=== PATIENT | female | born 1980 | race Caucasian/White ===

== ENCOUNTER 2022-12-02 10:10 | Outpatient (CLI) | payer OTHER ==
--- NOTE | 2022-12-02 11:51 | Ultrasound Report ---
PROCEDURE: Transvaginal INDICATIONS: PELVIC PAIN LEFT TECHNIQUE: Real-time endovaginal scanning was performed of the pelvic organs, with image documentation. COMPARISON: None. FINDINGS: No pathologic free abdominal or pelvic fluid. Uterus: Uterus is normal in size at 7.5 x 4.6 x 5.3 cm. The endometrium measures 5 mm in combined t hickness. There is no intrauterine gestation seen. No endometrial mass or fluid. Ovaries: Right ovary is surgically absent. No right adnexal mass is seen. Heterogeneously hypoechoic structure is noted in left ovary and show internal vascularity. Other: Small amount of free fluid is seen in left adnexa extending to posterior cul-de-sac. IMPRESSION: 1. No evidence of intrauterine gestation. 2. Complex mass in left ovary with internal blood flow and adjacent free fluid concerning for ectopic gestation. Correlation with serial beta-hCG levels and follow-up ultrasound is recommended. 3. Prior right nephrectomy. No abnormality is seen in right adnexa. Reviewed by: Sergio Mayes MD on 12/02/2022 11:50 AM PDT Approved by: Sergio Mayes MD on 12/02/2022 11:50 AM PDT Station ID: [id number]
== END 2022-12-02 10:11 | disposition home or self-care (01) ==
LOC: DI 10:10
PROVIDERS: ATTEND Nurse Practitioner
DX: Z32.01 Encounter for pregnancy test, result positive (principal); N83.8 Other noninflammatory disorders of ovary, fallopian tube and broad ligament; Z90.5 Acquired absence of kidney
CPT/HCPCS: 36415; 84702

== ENCOUNTER 2022-12-02 16:22 | Day surgery (SDC) | payer OTHER ==
[~2022-12-02 16:22] MED LIST: LACTATED RINGERS 1,000 ML IV ONE
--- NOTE | 2022-12-02 16:36 | ED Physician Documentation ---
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 She was found to be with a beta-hCG of 333 and an ultrasound concerning for ruptured ectopic and was referred to the emergency department to be sent for the OR. Last oral intake 7 AM. PD PAST MEDICAL HISTORY - Present Medications Home Medications: Ambulatory Orders Medication Instructions Recorded Confirmed Acetaminophen [Acetaminophen Extra 1,000 mg PO Q8H PRN #60 tablet 12/02/22 Strength] Ibuprofen [Motrin] 600 mg PO Q6H PRN #30 tab 12/02/22 - Allergies Allergies/Adverse Reactions: Allergies Allergy/AdvReac Type Severity Reaction Status Date / Time aspirin [From Percodan] Allergy Anaphylaxis Verified 12/02/22 16:31 hydrocodone [From Vicodin] Allergy Itching Verified 12/02/22 16:31 hydromorphone [From Dilaudid] Allergy Anaphylaxis Verified 12/02/22 16:31 morphine Allergy Anaphylaxis Verified 12/02/22 16:31 oxycodone [From Percocet] Allergy Anaphylaxis Verified 12/02/22 16:31 tramadol [From Ultram] Allergy Unknown Verified 12/02/22 16:31 PD ED PE NORMAL - Vitals Vital signs reviewed: Yes - General General: Alert and oriented X 3, No acute distress - Abdomen Abdomen: Normal bowel sounds, Soft, Non tender - Back Back: No CVA TTP, No spinal TTP - Derm Derm: Normal color, Warm and dry - Extremities Extremities: No edema, No calf tenderness / cord - Neuro Neuro: Alert and oriented X 3, Normal speech Results - Vitals Vitals: Vital Signs - 24 hr 12/02/22 12/02/22 12/02/22 16:24 16:51 17:35 Temperature 36.9 C Heart Rate 84 75 72 Heart Rate [ Monitoring electrodes] Respiratory 16 15 15 Rate Blood Pressure 144/97 H 149/94 H 132/84 H Blood Pressure [Left Brachial artery] O2 Saturation 99 100 100 12/02/22 12/02/22 12/02/22 18:03 19:35 19:40 Temperature 36.5 C Heart Rate 98 91 Heart Rate [ Monitoring electrodes] Respiratory 16 20 22 Rate Blood Pressure 135/99 H 145/97 H Blood Pressure [Left Brachial artery] O2 Saturation 99 100 12/02/22 12/02/22 12/02/22 19:45 19:50 20:00 Temperature 36.7 C Heart Rate 80 82 69 Heart Rate [ Monitoring electrodes] Respiratory 19 22 14 Rate Blood Pressure 155/93 H 152/91 H 146/91 H Blood Pressure [Left Brachial artery] O2 Saturation 100 100 100 12/02/22 20:46 Temperature 36.4 C L Heart Rate Heart Rate [ 67 Monitoring electrodes] Respiratory 16 Rate Blood Pressure Blood Pressure 140/83 H [Left Brachial artery] O2 Saturation 98 Oxygen O2 Source Room air - Labs Labs: Laboratory Tests 12/02/22 12/02/22 12/02/22 16:38 16:40 16:40 WBC 8.7 RBC 4.67 Hgb 13.2 Hct 41.6 MCV 89.1 MCH 28.3 MCHC 31.7 L RDW 12.7 Plt Count 310 MPV 9.1 Neut # (Auto) 5.3 Lymph # (Auto) 2.7 Dukes # (Auto) 0.7 Eos # (Auto) 0.0 Baso # (Auto) 0.0 Absolute Nucleated RBC 0.00 Nucleated RBC % 0.0 PT 11.2 INR 1.0 Sodium Potassium Chloride Carbon Dioxide Anion Gap BUN Creatinine Estimated GFR (MDRD) Glucose Calcium Urine Color DARK YELLOW Urine Clarity HAZY Urine pH 7.0 Ur Specific [place] 1.015 Urine Protein TRACE Urine Glucose (UA) NEGATIVE Urine Ketones 40 H Urine Occult Blood LARGE H Urine Nitrite NEGATIVE Urine Bilirubin NEGATIVE Urine Urobilinogen 0.2 (NORMAL) Ur Leukocyte Esterase NEGATIVE Urine RBC TNTC H Urine WBC 0-3 Ur Squamous Epith Cells FEW Squamous Urine Bacteria Moderate H Urine Mucus Few Strands Ur Microscopic Review INDICATED Urine Culture Comments NOT INDICATED Blood Type Antibody Screen 12/02/22 12/02/22 16:40 17:00 WBC RBC Hgb Hct MCV MCH MCHC RDW Plt Count MPV Neut # (Auto) Lymph # (Auto) [place]ukes # (Auto) Eos # (Auto) Baso # (Auto) Absolute Nucleated RBC Nucleated RBC % PT INR Sodium 138 Potassium 3.1 L Chloride 106 Carbon Dioxide 26 Anion Gap 6.0 BUN 11 Creatinine 0.8 Estimated GFR (MDRD) 79 L Glucose 101 H Calcium 9.1 Urine Color Urine Clarity Urine pH Ur Specific [place] Urine Protein Urine Glucose (UA) Urine Ketones Urine Occult Blood Urine Nitrite Urine Bilirubin Urine Urobilinogen Ur Leukocyte Esterase Urine RBC Urine WBC Ur Squamous Epith Cells Urine Bacteria Urine Mucus Ur Microscopic Review Urine Culture Comments Blood Type O NEGATIVE Antibody Screen NEGATIVE PD Medical Decision Making - ED course ED course: 42-year-old woman with apparent ruptured ectopic already worked up as an outpatient earlier today presents for operative management and I spoke with the on-call OB after initial evaluation at 4:36 PM. Discussed Rh_ status with OB, who feels rhogam not necessary as pt now infertile d/t dx/tx. Departure - Departure Disposition: ED Transfer to [facility] Clinical Impression: Ruptured ectopic Condition: Stable Discharge Date/Time: 12/02/22 18:05
[2022-12-02 16:56] LABS: BASOPHILS % (AUTO) 0.3 %; EOSINOPHILS % (AUTO) 0.1 %; HCT - HEMATOCRIT 41.6 % (37.0-47.0); HGB - HEMOGLOBIN 13.2 g/dL (12.0-16.0); LYMPHOCYTES # (AUTO) 2.7 10^3/uL (1.5-3.5); MEAN CORPUSCULAR HEMOGLOBIN 28.3 pg (27.0-31.0); MEAN CORPUSCULAR HGB CONC 31.7 g/dL (32.0-36.0); MEAN CORPUSCULAR VOLUME 89.1 fL (81.0-99.0); MEAN PLATELET VOLUME 9.1 fL (7.9-10.8); MONOCYTES # (AUTO) 0.7 10^3/uL (0.0-1.0); MONOCYTES % (AUTO) 7.6 %; NEUTROPHILS # (AUTO) 5.3 10^3/uL (1.5-6.6); NEUTROPHILS % (AUTO) 60.8 %; PLT - PLATELET COUNT 310 10^3/uL (130-450); RED BLOOD COUNT 4.67 10^6/uL (4.20-5.40); RED CELL DISTRIBUTION WIDTH 12.7 % (12.0-15.0); WHITE BLOOD COUNT 8.7 x10^3/uL (4.8-10.8)
[2022-12-02 17:00] LABS: BILIRUBIN,URINE NEGATIVE (NEGATIVE); GLUCOSE, URINE (UA) NEGATIVE (NEGATIVE); KETONES,URINE (UA) 40 mg/dL (NEGATIVE); LEUKOCYTE ESTERASE, URINE NEGATIVE (NEGATIVE); NITRITE,URINE NEGATIVE (NEGATIVE); OCCULT BLOOD,URINE LARGE (NEGATIVE); PROTEIN,URINE TRACE mg/dL (NEGATIVE); UROBILINOGEN,URINE 0.2 (NORMAL) E.U./dL (NORMAL)
[2022-12-02 17:01] LABS: CLARITY,URINE HAZY (CLEAR)
[2022-12-02 17:03] LABS: PT - PROTHROMBIN TIME 11.2 secs (9.9-12.6)
[2022-12-02 17:07] LABS: CALCIUM 9.1 mg/dL (8.5-10.3); CREATININE 0.8 mg/dL (0.4-1.0); POTASSIUM 3.1 mmol/L (3.5-5.0)
[2022-12-02 17:09] LABS: BACTERIA,URINE Moderate /HPF (None Seen); MUCUS,URINE Few Strands; RBC,URINE TNTC /HPF (0-5); SQUAMOUS EPITHELIAL CELL,UR FEW Squamous (<= Few); WBC,URINE 0-3 /HPF (0-5)
--- NOTE | 2022-12-02 17:21 | HISTORY & PHYSICAL EXAMINATION ---
HPI - Admitted From Admitted from: ED - History Obtained From History obtained from: Patient Exam limitations: No limitations - History of Present Illness Severity at the worst: reports: Moderate Pain Quality: reports: Throbbing Context-Pain started w/: reports: Movement, Palpation Timing: reports: Gradual onset Duration: reports: Days: Improved with: reports: Nothing Worsened by: reports: Movement HPI Comment/Other: This 42-year-old 5 para 4 AB 1 was seen at the clinic for the evaluation of left lower quadrant pain. hCG titer was 333 and pelvic ultrasound showed complex echogenic structure on the left side adnexal area. She was having bleeding also. Examination revealed consistent with left tubal ectopic and discussed about the medical treatment with methotrexate versus laparoscopic procedure. We agreed to proceed with laparoscopic examination. She and her were well-informed the pros and cons and they understood and consented for the procedure. 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: positive: None : positive: None HEENT: positive: None Psych: positive: None Musculoskeletal: positive: None Derm: positive: None MRSA Hx?: No - Past Surgical History Ortho: positive: Other /MOTORIZED SQUAD LIEUTENANT: positive: section, Oophrectomy Social & Family Hx - Social History Does the pt smoke?: No Smoking Status: Never smoker Does the pt drink ETOH?: Yes Does the pt have substance abuse?: No - POLST Patient has POLST: No Meds/Allgy - Home Medications Home Medications: Ambulatory Orders Medication Instructions Recorded Confirmed No Known Home Medications 12/02/22 12/02/22 - Allergies Allergies/Adverse Reactions: Allergies Allergy/AdvReac Type Severity Reaction Status Date / Time acetaminophen [From Percocet] Allergy Anaphylaxis Verified 12/02/22 16:31 aspirin [From Percodan] Allergy Anaphylaxis Verified 12/02/22 16:31 hydrocodone [From Vicodin] Allergy Itching Verified 12/02/22 16:31 hydromorphone [From Dilaudid] Allergy Anaphylaxis Verified 12/02/22 16:31 morphine Allergy Anaphylaxis Verified 12/02/22 16:31 oxycodone [From Percocet] Allergy Anaphylaxis Verified 12/02/22 16:31 tramadol [From Ultram] Allergy Unknown Verified 12/02/22 16:31 Review of Systems - Gastrointestinal Gastrointestinal: reports: Abdominal pain - All Other Systems All Other Systems: reports: Reviewed and negative Exam - Vital Signs Reviewed Vital Signs: Yes Vital Signs: Vital Signs x48h Temp Pulse Resp BP Pulse Ox 12/02/22 16:51 75 15 149/94 H 100 12/02/22 16:24 98.4 F 84 16 144/97 H 99 - Physical Exam General Appearance: positive: Mild distress Eyes Bilateral: positive: Normal inspection ENT: positive: ENT inspection nml Neck: positive: Nml inspection Abdomen: positive: Tenderness Results - Lab Results Fish Bones: 12/02/22 16:40 12/02/22 16:40 Other Lab Results: Lab Results x24hrs 12/02/22 12/02/22 12/02/22 Range/Units 16:40 16:40 16:40 WBC 8.7 (4.8-10.8) x10^3/uL RBC 4.67 (4.20-5.40) 10^6/uL Hgb 13.2 (12.0-16.0) g/dL Hct 41.6 (37.0-47.0) % MCV 89.1 (81.0-99.0) fL MCH 28.3 (27.0-31.0) pg MCHC 31.7 L (32.0-36.0) g/dL RDW 12.7 (12.0-15.0) % Plt Count 310 (130-450) 10^3/uL MPV 9.1 (7.9-10.8) fL Neut # (Auto) 5.3 (1.5-6.6) 10^3/uL Lymph # (Auto) 2.7 (1.5-3.5) 10^3/uL [place] # (Auto) 0.7 (0.0-1.0) 10^3/uL Eos # (Auto) 0.0 (0.0-0.7) 10^3/uL Baso # (Auto) 0.0 (0.0-0.1) 10^3/uL Absolute Nucleated RBC 0.00 x10^3/uL Nucleated RBC % 0.0 /100WBC PT 11.2 (9.9-12.6) secs INR 1.0 (0.8-1.2) Sodium 138 (135-145) mmol/L Potassium 3.1 L (3.5-5.0) mmol/L Chloride 106 (101-111) mmol/L Carbon Dioxide 26 (21-32) mmol/L Anion Gap 6.0 (6-13) BUN 11 (6-20) mg/dL Creatinine 0.8 (0.4-1.0) mg/dL Estimated GFR (MDRD) 79 L (>89) Glucose 101 H (70-100) mg/dL Calcium 9.1 (8.5-10.3) mg/dL Urine Color Urine Clarity (CLEAR) Urine pH (5.0-7.5) PH Ur Specific [place] (1.002-1.030) Urine Protein (NEGATIVE) mg/dL Urine Glucose (UA) (NEGATIVE) mg/dL Urine Ketones (NEGATIVE) mg/dL Urine Occult Blood (NEGATIVE) Urine Nitrite (NEGATIVE) Urine Bilirubin (NEGATIVE) Urine Urobilinogen (NORMAL) E.U./dL Ur Leukocyte Esterase (NEGATIVE) Urine RBC (0-5) /HPF Urine WBC (0-5) /HPF Ur Squamous Epith Cells (<= Few) Urine Bacteria (None Seen) /HPF Urine Mucus Ur Microscopic Review Urine Culture Comments 12/02/22 Range/Units 16:38 WBC (4.8-10.8) x10^3/uL RBC (4.20-5.40) 10^6/uL Hgb (12.0-16.0) g/dL Hct (37.0-47.0) % MCV (81.0-99.0) fL MCH (27.0-31.0) pg MCHC (32.0-36.0) g/dL RDW (12.0-15.0) % Plt Count (130-450) 10^3/uL MPV (7.9-10.8) fL Neut # (Auto) (1.5-6.6) 10^3/uL Lymph # (Auto) (1.5-3.5) 10^3/uL [place] # (Auto) (0.0-1.0) 10^3/uL Eos # (Auto) (0.0-0.7) 10^3/uL Baso # (Auto) (0.0-0.1) 10^3/uL Absolute Nucleated RBC x10^3/uL Nucleated RBC % /100WBC PT (9.9-12.6) secs INR (0.8-1.2) Sodium (135-145) mmol/L Potassium (3.5-5.0) mmol/L Chloride (101-111) mmol/L Carbon Dioxide (21-32) mmol/L Anion Gap (6-13) BUN (6-20) mg/dL Creatinine (0.4-1.0) mg/dL Estimated GFR (MDRD) (>89) Glucose (70-100) mg/dL Calcium (8.5-10.3) mg/dL Urine Color DARK YELLOW Urine Clarity HAZY (CLEAR) Urine pH 7.0 (5.0-7.5) PH Ur Specific [place] 1.015 (1.002-1.030) Urine Protein TRACE (NEGATIVE) mg/dL Urine Glucose (UA) NEGATIVE (NEGATIVE) mg/dL Urine Ketones 40 H (NEGATIVE) mg/dL Urine Occult Blood LARGE H (NEGATIVE) Urine Nitrite NEGATIVE (NEGATIVE) Urine Bilirubin NEGATIVE (NEGATIVE) Urine Urobilinogen 0.2 (NORMAL) (NORMAL) E.U./dL Ur Leukocyte Esterase NEGATIVE (NEGATIVE) Urine RBC TNTC H (0-5) /HPF Urine WBC 0-3 (0-5) /HPF Ur Squamous Epith Cells FEW Squamous (<= Few) Urine Bacteria Moderate H (None Seen) /HPF Urine Mucus Few Strands Ur Microscopic Review INDICATED Urine Culture Comments NOT INDICATED Impression/Plan - Problem List Problem List: Impression: Left tubal ectopic Plan laparoscopic examination and left salpingectomy and possible dilation and curettage
[2022-12-02] MEDS ORDERED: PROPOFOL 200 MG/20 ML VIAL IVP ONE (17:23)
[2022-12-02] MEDS ORDERED: ROCURONIUM 50 MG/5 ML VIAL ONE (17:23)
[2022-12-02] MEDS ORDERED: MIDAZOLAM 2 MG/2 ML VIAL ONE (17:25)
[2022-12-02] MEDS ORDERED: fentaNYL 100 MCG/2 ML VIAL ONE (17:25)
--- NOTE | 2022-12-02 17:41 | ANESTHESIA ---
Pre-Anesthesia VS, & Labs - Diagnosis ectopic - Procedure laparoscopic treatment of ectopic Vital Signs: Temp Pulse Resp BP Pulse Ox O2 Flow Rate 36.9 C 75 15 149/94 H 100 12/02/22 16:24 12/02/22 16:51 12/02/22 16:51 12/02/22 16:51 12/02/22 16:51 Height: 5 ft 5 in Weight (kg): 67.585 kg Body Mass Index: 24.7 BMI Classification: Normal - NPO >8 hours - Is Patient ?: Yes - Lab Results Current Lab Results: Laboratory Tests 12/02/22 16:40: Sodium 138, Potassium 3.1 L, Chloride 106, Carbon Dioxide 26, Anion Gap 6.0, BUN 11, Creatinine 0.8, Estimated GFR (MDRD) 79 L, Glucose 101 H, Calcium 9.1 12/02/22 16:40: PT 11.2, INR 1.0 12/02/22 16:40: WBC 8.7, RBC 4.67, Hgb 13.2, Hct 41.6, MCV 89.1, MCH 28.3, MCHC 31.7 L, RDW 12.7, Plt Count 310, MPV 9.1, Neut # (Auto) 5.3, Lymph # (Auto) 2.7, [place] # (Auto) 0.7, Eos # (Auto) 0.0, Baso # (Auto) 0.0, Absolute Nucleated RBC 0.00, Nucleated RBC % 0.0 Fish Bones: 12/02/22 16:40 12/02/22 16:40 Home Medications and Allergies Home Medications: Ambulatory Orders No Known Home Medications 12/02/22 No Known Home Medications 12/02/22 Allergies/Adverse Reactions: Allergies Allergy/AdvReac Type Severity Reaction Status Date / Time acetaminophen [From Percocet] Allergy Anaphylaxis Verified 12/02/22 16:31 aspirin [From Percodan] Allergy Anaphylaxis Verified 12/02/22 16:31 hydrocodone [From Vicodin] Allergy Itching Verified 12/02/22 16:31 hydromorphone [From Dilaudid] Allergy Anaphylaxis Verified 12/02/22 16:31 morphine Allergy Anaphylaxis Verified 12/02/22 16:31 oxycodone [From Percocet] Allergy Anaphylaxis Verified 12/02/22 16:31 tramadol [From Ultram] Allergy Unknown Verified 12/02/22 16:31 Anes History & Medical History - Anesthetic History Anesthesia Complications: reports: No previous complications - Medical History Cardiovascular: reports: None Pulmonary: reports: None Gastrointestinal: reports: None Urinary: reports: None Neuro: reports: None Musculoskeletal: reports: None Endocrine/Autoimmune: reports: None Blood Disorders: reports: None Skin: reports: None Smoking Status: Never smoker - Surgical History Gynecologic: reports: section, Oophrectomy Orthopedic: reports: Other Exam General: Alert, Oriented x3 Dental: WNL Mouth Opening: Greater than 4 Fingerbreadths Neck Mobility: Normal Mallampati classification: II Respiratory: Lungs clear Cardiovascular: Regular rate Plan Anesthesia Type: General Consent for Procedure(s) Verified and Reviewed: Yes Code Status: Attempt Resuscitation ASA classification: 2-Mild systemic disease Is this case an emergency?: Yes
[2022-12-02] MEDS ORDERED: BUPIVACAINE 0.5% PF 30 ML VIAL ONE (17:42)
[2022-12-02] MEDS ORDERED: NALOXONE 0.4 MG/ML VIAL IVP PRN (17:48)
[2022-12-02] MEDS ORDERED: fentaNYL 100 MCG/2 ML VIAL IVP PRN (17:48)
[2022-12-02] MEDS ORDERED: ONDANSETRON 4 MG/2 ML VIAL IVP PRN (17:48)
[2022-12-02] MEDS ORDERED: METOCLOPRAMIDE 10 MG/2 ML VIAL IVP PRN (17:48)
[2022-12-02] MEDS ORDERED: ePHEDrine 50 MG/ML VIAL IVP PRN (17:48)
[2022-12-02] MEDS ORDERED: ATROPINE ABBOJECT 1 MG/10 ML SYRINGE IVP PRN (17:48)
[2022-12-02] MEDS ORDERED: KETAMINE 200 MG/20 ML VIAL ONE (17:53)
[2022-12-02] MEDS ORDERED: LACTATED RINGERS 1,000 ML IV SCH (18:00)
[2022-12-02] MEDS ORDERED: DEXAMETHASONE 4 MG/ML VIAL ONE (18:22)
[2022-12-02] MEDS ORDERED: ONDANSETRON 4 MG/2 ML VIAL ONE (18:22)
[2022-12-02] MEDS ORDERED: diphenhydrAMINE INJ 50 MG/ML VIAL ONE (18:22)
[2022-12-02] MEDS ORDERED: ceFAZolin 1 GM VIAL ONE (18:50)
[2022-12-02] MEDS ORDERED: BUPIVACAINE 0.5% PF 30 ML VIAL INFIL ONE ×2 (18:59)
[2022-12-02] MEDS ORDERED: SUGAMMADEX 200 MG/2 ML VIAL IVP ONE (19:16)
[2022-12-02] MEDS ORDERED: KETOROLAC 30 MG/ML VIAL ONE (19:16)
--- NOTE | 2022-12-02 19:34 | OPERATIVE REPORT ---
Operative Report - General Procedure Date: 12/02/22 Planned Procedure: Laparoscopic left salpingectomy Pre-Op Diagnosis: Left tubal ectopic Procedure Performed: Laparoscopic left salpingectomy Post Op Diagnosis: Left tubal ectopic unruptured - Procedure Note Primary Surgeon: Anesthesia Provider: DAVID Anesthesia Technique: General ET tube Pathology: Left tube with products of conception Estimated Blood Loss (mL): 10 Indications: Left tubal ectopic Findings: Normal external genitalia, normal size of uterus, left unruptured tubal ectopic , left normal ovary, right ovary surgically absent tube was seen Complications: None - Other Other Information/Narrative: Normal looking appendix and normal edge of liver and minimal free blood in the pelvis Date of surgery:December 02, 2022 Surgeon: Dr. CSAANOVA Preoperative diagnosis: Left tubal ectopic Postoperative diagnosis: The same Procedure performed: Laparoscopy left salpingectomy Anesthesia: General Estimated blood loss:10 mm Findings: Appearance of external genitalia normal appearance of vagina normal appearance of cervix normal uterine size 8 centimeter mid position mobile adnexal masses:Not well palpated The uterus was slightly enlarged The left adnexa was not well visualized due to this omental adhesions and when it was visualized after dissection of the adhesion the left tube showed intra tubal ectopic in the ampulla portion and ovary was severely covered by the adhesion. Right tube and ovary were not shown There was a mild hemoperitoneum Specimen: Products of conception with left tube Complications: None Disposition: Stable to PACU Indications for procedure History: This is a 42-year-old 5 para 4 ectopic 1 who presented to the emergency department with abnormal ultrasound finding and ledt abdominal pain. Quantitative beta-hCG was performed and noted to be 333. On ultrasound the following findings were noted: No intrauterine gestational sac was noted and there was a complex left adnexal mass. Small amount of free fluid was noted in the cul-de-sac. The patient was noted to be hemodynamically stable. Surgical risk: The patient was informed of the risks and benefits of a diagnostic laparoscopy. The risks included, but were not limited to, bleeding, infection, injury to internal organs, possible blood transfusion, possible hysterectomy, and possible oophorectomy. The patient was counseled on the potential loss of fertility following unilateral salpingectomy. The patient's w as counseled on possible laparotomy and all other indicated procedures. The patient expressed understanding of the risks involved, all questions were answered, and the patient consented to the procedure. Description of the procedure The patient was taken to the operating room where a timeout was performed to confirm correct patient and correct procedure. The patient was given preoperative prophylactic intravenous antibiotics. General anesthesia was established. The patient was then positioned on the operating table in the dorsal lithotomy position with the legs supported using stirrups. All pressure points were padded and a Anish hugger was placed to maintain control of core body temperature. The patient was then prepped and draped in the usual sterile fashion. A bimanual exam was performed and the uterus was found to be slightly increased in size, midline, and mobile. Operative technique: The speculum was inserted and anterior lip of the cervix was grasped with a single-tooth tenaculum. No active bleeding was noted. The uterine cavity was measured 8 cm. A uterine manipulator was placed through the cervix into the uterus for uterine manipulation. The speculum was then removed from the vagina. Good hemostasis was noted. Attention was turned to the abdomen where a 5 mm vertical incision was made in the umbilical region and a 5 mm trocar was introduced under direct visualization with the laparoscope within the trocar. A 5 mm trocar was introduced after achievement of pneumoperitoneum. The laparoscope was then placed through the trocar and diagnostic laparoscopy was performed. The findings was as above described. A 5 mm horizontal incision was made in the left lower quadrant after injecting quarter percent of Marcaine. A 5 mm trocar was introduced under direct visualization. The left fallopian tube was noted to be grossly swollen with an ectopic . This was well visualized after dissecting the omental adhesion on the posterior of the uterus. A 10 mm incision was then made in the left lower quadrant after injecting the local anes thetics . A 10 mm trocar was then introduced under direct visualization. The fallopian tube was grasped at the fimbriated end using atraumatic graspers and the LigaSure was used to coagulate and cut the fallopian tube proximal to the ectopic. The fallopian tube was then coagulated and cut distal to the ectopic . The mesosalpinx was coagulated and cut using the LigaSure. The portion of the fallopian tube containing products of conception was then placed into an Endobag, removed, and sent to pathology. Attention was turned to the liver and liver edge was normal. Free blood was suctioned from the cul-de-sac. The pelvis was thoroughly irrigated and good hemostasis was noted. The 10 mm port was removed and the fascial incision was closed using 2-0 Vicryl in interrupted sutures and the pneumoperitoneum was evacuated and the remaining ports were removed. The skin was reapproximated using Dermabond. Attention was then turned to the perineum. The uterine manipulator was removed and hemostasis was confirmed. All sponges, needle, and instrument counts were noted to be correct x2 at the end of the procedure. The patient tolerated the procedure well and was transferred to the recovery room in stable condition.
[2022-12-02] MEDS ORDERED: LACTATED RINGERS 1,000 ML IV ONE (19:50)
--- NOTE | 2022-12-02 19:55 | Discharge Plan ---
Discharge Plan Problem Reviewed?: Yes Disposition: Home, Self Care Condition: Stable Diet: Regular Activity Restrictions: Activity as Tolerated Shower Restrictions: No Driving Restrictions: Yes Weight Bearing: Partial Weight No Smoking: If you smoke, Please STOP! Call for help. Follow-up with: LATIA DAVID MD [Primary Care Provider] - Jin Castaneda MD [Provider Admit Priv/Credential] -
--- NOTE | 2022-12-02 20:08 | ANESTHESIA POST OP EVALUATION ---
Anesthesia Post Eval - Post Anesthesia Eval Vitals: Last Vital Signs Temp 36.5 C 12/02/22 19:35 Pulse 82 12/02/22 19:50 Resp 22 12/02/22 19:50 BP 152/91 H 12/02/22 19:50 Pulse Ox 100 12/02/22 19:50 O2 Flow Rate CV Function Including HR & BP: Stable Pain Control: Satisfactory Nausea & Vomiting: Negative Mental Status: Baseline Respiratory Status: Airway Patent Hydration Status: Satisfactory Anesthesia Complications: None
[2022-12-02 20:50] VITALS: BP 140/83
[2022-12-02] MEDS ORDERED: IBUPROFEN 800 MG TABLET PO PRN (20:51)
[2022-12-02] MEDS ORDERED: SIMETHICONE CHEW 80 MG TABLET PO SCH (20:51)
[2022-12-02] MEDS ORDERED: ACETAMINOPHEN 500 MG TABLET PO PRN (20:52)
== END 2022-12-02 22:00 | disposition home or self-care (01) ==
LOC: ED 16:22 → SDS 17:24 → FBP 20:04 → SDS 22:00
PROVIDERS: ATTEND Obstetrics & Gynecology
PROC: 0UT Female Reproductive System, Resection (ICD-10-PCS; 2022-12-02)
PROC: 10T28ZZ Resection of Products of Conception, Ectopic, Via Natural or Artificial Opening Endoscopic (ICD-10-PCS; principal; 2022-12-02 18:00)
DX: O00.102 Left tubal pregnancy without intrauterine pregnancy (principal); Z32.01 Encounter for pregnancy test, result positive; N83.8 Other noninflammatory disorders of ovary, fallopian tube and broad ligament; Z90.5 Acquired absence of kidney
CPT/HCPCS: 36415; 59151; 76830; 80048; 81001; 84702; 85025; 85610; 86850; 86900; 86901; 99284; 99285; A9270; J1200; J3490; J7120; 81003; 87086